=== PATIENT | male | born 1980 | race American Indian/Alaskan Native ===

== ENCOUNTER 2018-02-08 01:48 | Emergency (ER) | payer SELFPAY ==
[2018-02-08] MEDS ORDERED: ADRENALIN ONE (01:50)
[2018-02-08] MEDS ORDERED: SODIUM BICARBONATE Syringe IV ONE (01:50)
[2018-02-08] MEDS ORDERED: CALCIUM CHLORIDE IV ONE (01:50)
--- NOTE | 2018-02-08 02:14 | Emergency Department Report ---
ED CPR HPI - General Stated Complaint: CARDIAC ARREST Time Seen by Provider: 02/08/18 01:48 Source: EMS Mode of arrival: Stretcher Limitations: Altered Mental Status, Other (clinical condition) - History of Present Illness MD Complaint: found unresponsive, stopped breathing Place: home Bystander CPR Performed: No AED Applied by Bystander/Overlock Elastic Attacher: No Initial Findings in the Field: unresponsive, no respirations, no pulse ROSC in the Field: No Associated Injuries: No Associated Symptoms: chest pain, shortness of breath Treatments Prior to Arrival: intubation, chest compressions, defribrillated shocks #, epinephrine mgs # - Related Data Previous Rx's Medication Instructions Recorded Last Taken Type Clindamycin [Clindamycin CAP] 300 mg PO Q6H #40 capsule 04/17/16 Unknown Rx predniSONE [Deltasone] 40 mg PO QDAY #10 tab 04/17/16 Unknown Rx traMADol [Ultram 50 MG tab] 50 mg PO Q6HR PRN #15 tablet 04/17/16 Unknown Rx Allergies Allergy/AdvReac Type Severity Reaction Status Date / Time Penicillins Allergy Unknown Verified 04/17/16 13:01 ED Review of Systems ROS: Stated complaint: CARDIAC ARREST Other details as noted in HPI Comment: Unobtainable due to pts medical conditions Respiratory: denies: wheezing ED Past Medical Hx - Past Medical History Previous Medical History?: Yes Hx Asthma: Yes - Surgical History Past Surgical History?: No - Family History Family history: no significant - Social History Smoking Status: Never Smoker Substance Use Type: None - Medications Home Medications: Home Medications Medication Instructions Recorded Confirmed Last Taken Type Clindamycin [Clindamycin CAP] 300 mg PO Q6H #40 capsule 04/17/16 Unknown Rx predniSONE [Deltasone] 40 mg PO QDAY #10 tab 04/17/16 Unknown Rx traMADol [Ultram 50 MG tab] 50 mg PO Q6HR PRN #15 tablet 04/17/16 Unknown Rx ED Physical Exam - General Limitations: Altered Mental Status General appearance: obtunded - Head Head exam: Present: atraumatic, normocephalic - Eye Eye exam: Present: other (pupils fixed and dilated) - Neck Neck exam: Present: normal inspection, other (right EJ iv) - Respiratory Respiratory exam: Present: other (bilateral lung sounds. Patient is intubated) - Cardiovascular Cardiovascular Exam: Present: other (no pulse noted) - GI/Abdominal GI/Abdominal exam: Present: soft - Rectal Rectal exam: Present: deferred - Extremities Exam Extremities exam: Present: normal inspection, other (IO and right lower extremity that was placed by EMS but is not functional) - Skin Skin exam: Present: warm, dry, intact ED Course - Reevaluation(s) Reevaluation #1: Initial evaluation done. Report received from EMS. EMS deliver one shock fine V. fib. Patient given multiple medications are to arrival EMS. Code Ran in accordance with ACLS protocol. 02/08/18 01:48 Resuscitation efforts terminated. No signs of life. Ultrasound use and no cardiac motion noted patient's asystole on a monitor no pulse. See code note 02/08/18 02:01 Family meeting done. Family Support given. All questions answered. 02/08/18 02:25 ED Medical Decision Making - Medical Decision Making She is 37-year-old male came in full cardiac arrest. Unable to resuscitate patient. . Oxycodone no. Family support will be given. - Differential Diagnosis cardiac arrest. Critical Care Time: Yes Critical care attestation.: If time is entered above; I have spent that time in minutes in the direct care of this critically ill patient, excluding procedure time. Critical Care Time: 35 minutes. ED Disposition Clinical Impression: Cardiac arrest Disposition: DC-20 Is pt being admited?: No Does the pt Need Aspirin: No Condition: Undetermined Time of Disposition: 03:00
== END 2018-02-08 02:15 ==
LOC: ED 01:48
DX: I46.9 Cardiac arrest, cause unspecified (principal); J45.909 Unspecified asthma, uncomplicated; Z88.0 Allergy status to penicillin
CPT/HCPCS: 99291; J0171